=== PATIENT | female | born 1970 | race Asian ===

== ENCOUNTER → 2023-10-05 06:37 | Day surgery (SDC) | payer BC, SELFPAY | LOC: GI 06:37 | PROVIDERS: ATTENDING PHYSICIAN Internal Medicine Gastroenterology | DX: Z12.11 Encounter for screening for malignant neoplasm of colon (principal); Z80.0 Family history of malignant neoplasm of digestive organs; K57.30 Diverticulosis of large intestine without perforation or abscess without bleeding; K64.8 Other hemorrhoids; D12.2 Benign neoplasm of ascending colon; K21.9 Gastro-esophageal reflux disease without esophagitis; K31.9 Disease of stomach and duodenum, unspecified; K29.70 Gastritis, unspecified, without bleeding | CPT/HCPCS: 45380; 43239; 88305; 88342 ==

== ENCOUNTER → 2024-08-17 07:14 | Outpatient (REF) | payer BC, SELFPAY | LOC: HWRAD 07:14 | PROVIDERS: ATTENDING PHYSICIAN Nurse Practitioner Adult Health | DX: R79.89 Other specified abnormal findings of blood chemistry (principal) | CPT/HCPCS: 76700 ==

== ENCOUNTER 2024-10-25 21:45 | Inpatient (IN) | payer BC, SELFPAY ==
[2024-10-25 16:18] VITALS: BP 165/108
[2024-10-25] MEDS: ZOFRAN ODT (ORALLY DISINTEGRATING) 4 MG PO (16:28)
[2024-10-25] MEDS: TYLENOL 1000 MG PO (16:28)
[2024-10-25 17:05] LABS: COVID-19 Antigen Negative (Negative)
[2024-10-25 17:22] LABS: Hematocrit 38.5 % (37.0-47.0); Hemoglobin 13.3 g/dL (12.0-16.0); Mean Corp Hgb Conc. 34.5 g/dL (33.0-37.0); Mean Corpuscular Volume 90.8 fL (81.0-99.0); Nucleated Red Blood Cells % 0 %; Platelet Count 349 10^3/uL (130-400); Red Cell Dist. Width 12.4 % (11.5-14.5)
[2024-10-25 17:23] LABS: HCG, Serum Qualitative Screen Negative
[2024-10-25 17:24] LABS: ALT (SGPT) 41 U/L (0-35); AST (SGOT) 33 U/L (14-36); Albumin 4.2 g/dl (3.5-5.0); Alkaline Phosphatase 85 U/L (38-126); Blood Urea Nitrogen 19 mg/dl (7-17); Calcium 8.9 mg/dl (8.4-10.2); Carbon Dioxide 24 mmol/L (22-30); Chloride 102 mmol/L (98-107); Glucose 126 mg/dl (70-99); Potassium 3.5 mmol/L (3.5-5.1); Sodium 137 mmol/L (135-145); Total Protein 7.7 g/dl (6.3-8.2); eGFR > 60.00
[2024-10-25 18:45] VITALS: BP 122/68
[2024-10-25 18:46] VITALS: BMI 30.7
--- NOTE | 2024-10-25 19:26 | ED.GENMED ---
History of Present Illness
General
Chief Complaint: Fever
Source: patient
Exam Limitations: none
Time Seen by Provider: 10/25/24 18:54
History of Present Illness
History of Present Illness:
54-year-old female started 4 to 5 days ago with cough congestion. Initially started on a inhaler. Today added azithromycin. Some vomiting but only during coughing. Had some shortness of breath today during coughing.
Past History
Past History
ED Past Medical History: HTN
ED Past Surgical History: and Gynecological (Lumpectomy)
Review of Systems
Review of Systems
All Other Systems: Not applicable
Constitutional: Reports fever and chills
Respiratory: Reports cough; Denies hemoptysis
Cardiac: Denies chest pain
Phy Exam
Physical Exam
Physical Exam:
GENERAL: Alert and oriented in no apparent distress
EYE: Orbits normal.
NECK: Supple, no significant adenopathy.
ENT: Nasal congestion
CARDIAC: Regular rate and rhythm without any obvious murmurs.
LUNGS: No respiratory distress. Occasional cough. Sounds very congested nasally. Mild expiratory wheezing and some decreased effort mainly secondary to cough with deep breathing.
ABDOMEN: Soft, without focal tenderness or distention
NEUROLOGICAL: Alert and oriented , grossly non-focal
SKIN: Warm and dry, no rash or lesion, no discoloration, skin intact.
MUSCULOSKELETAL: No edema,no deformity.Good color. No cord. No calf swelling
PSYCH: Normal and appropriate interaction.
Sepsis
Sepsis Screening
Sepsis Assessment: Sepsis Ruled Out
Sepsis Screen
Sepsis Screen: Sepsis Ruled Out
Date: 10/26/24
Time: 02:03
Course
Orders/Labs/Results
Orders:
Orders
10/25/24 Dinner
Regular
10/25/24 16:24
Electrocardiogram (*1) Urgent
Reason for Study: Shortness of Breath
EKG- Treatment ONCE
Test Result ONCE
CR Chest - 2 Views Urgent
Comment:
Reason For Exam: cough
10/25/24 16:26
Acetaminophen [Tylenol] 1,000 mg .ROUTE .STK-MED ONE
Ondansetron Orally Disint [Zofran Odt (Orally Disintegrating)] 4 mg .ROUTE .STK-MED ONE
10/25/24 16:27
Acetaminophen [Tylenol] 1,000 mg PO NOW STA
Ondansetron Orally Disint [Zofran Odt (Orally Disintegrating)] 4 mg PO NOW STA
10/25/24 16:34
COVID-19 Antigen Urgent
Source: Nasal Swab
Complete Blood Count/With Diff Urgent
Comprehensive Metabolic Panel Urgent
HCG, Serum Qualitative Screen Urgent
Lactic Acid Urgent
Influenza A+B Rapid Molecular Urgent
ISELA Source: Nasal Swab
Specimen Description:
10/25/24 19:25
IV Insert/Care/Rem.- Treatment PRN
0.9% Sodium Chloride 1000 ml [Nss] 1,000 ml IV BOLUS
CefTRIAXone [Rocephin] 1,000 mg IV NOW STA
Dexamethasone Sod Phosphate [Decadron] 8 mg IV NOW STA
Ipratropium/Albuterol Sulfate [Duoneb] 3 ml .ROUTE .STK-MED ONE
Ipratropium/Albuterol Sulfate [Duoneb] 3 ml INH R NOW STA
10/25/24 21:29
Admit/Transfer Patient As Directed
Co-Sign Provider:
Level of Care: Inpatient admission
Assign to:: Medical/Surgical
Physician / Group: priscilla
Diagnosis: sepsis pneumonia
Reason for Hospitalization: sepsis pneumonia
Expected length of stay greater than two midnights?: Yes
ELOS- Estimated Length of Stay in days: 2
I certify the patient meets the requirements for IP care: Yes
PRN Pain Medication Management As Directed
May give lesser potent ordered pain med per pt: Yes
preference::
Protocol:: Medication orders for pain may be administered in a
manner that supports deferring to patient preference
when the pt is:
- Requesting an ordered lesser potent pain medication.
Least to most potent pain medications are defined
as: acetaminophen < NSAID < tramadol < opioids
(morphine, oxycodone, hydromorphone).
- Requesting a lesser dose of the same medication IF
ORDERED.
- Requesting a less intrusive route of administration
if both routes are prescribed by the provider (PO <
IV).
10/25/24 21:30
Code Status As Directed
Resuscitation Status: Full Code
10/25/24 21:44
Respiratory Culture/Gram Stain Urgent
ISELA Source: Sputum
Specimen Description:
10/25/24 23:04
0.9% Sodium Chloride 1000 ml [Nss] 1,000 ml IV 100 mls/hr
Acetaminophen [Tylenol] 650 mg PO Q4HPRN PRN
Ondansetron Injectable [Zofran] 4 mg IV Q6HPRN PRN
10/25/24 23:04
Activity As Directed
Activity Level: As Tolerated
Vital Signs As Directed
Frequency: Per unit guidelines
DX Deep Vein Thrombosis Video Routine
10/26/24 00:00
Azithromycin [Zithromax] 250 mg 0.9% Sodium Chloride 250 ml [Nss] 250 ml IV Q24H
10/26/24 06:00
Complete Blood Count/With Diff IN AM
Comprehensive Metabolic Panel IN AM
10/26/24 08:00
Heparin 5,000 units SC Q12
10/26/24 20:00
CefTRIAXone [Rocephin] 1,000 mg IV Q24H
Abnormal Lab Results
10/25/24
16:34
MCH 31.4 H pg
(27.0-31.0)
Absolute Neuts (auto) 6.7 H 10^3/uL
(1.4-6.5)
Neutrophils % 77.8 H %
(42.2-75.2)
Lymphocytes % 16.4 L %
(20.5-51.1)
BUN 19 H mg/dl
(7-17)
Glucose 126 H mg/dl
(70-99)
ALT 41 H U/L
(0-35)
10/25/24 16:34
10/25/24 16:34
Vital Signs
Initial and Last Documented VS:
Initial Vital Signs
Temp Pulse Resp BP Pulse Ox
101.3 F H 129 25 165/108 93
10/25/24 16:18 10/25/24 16:18 10/25/24 16:18 10/25/24 16:18 10/25/24 16:18
Last Documented Vital Signs
Temp Pulse Resp BP Pulse Ox
97.7 F 83 16 143/86 95
10/25/24 23:09 10/25/24 23:09 10/25/24 23:09 10/25/24 23:09 10/25/24 23:09
MDM/Problems Addressed
Differential Diagnosis Includes:
This is clearly a pulmonary issue. Nasally very congested. Cough. Expiratory wheezing. I do not feel pulmonary emboli is high on the list. Symptoms are very infectious in etiology. Questionable small retrocardiac infiltrate. Will add
Rocephin, fluids, DuoNeb and some steroids for the wheezing.
*Radiology
Radiology exam reviewed: preliminary read by ED provider (Questionable small retrocardiac infiltrate)
*Pulse Oximetry
SaO2: 94
Oxygen Mode of Delivery: Room air
Patient hypoxic: no
*Critical Care Note
Total Time (30-74mins, 75-104mins- exclusive of procedures): Not Applicable
Update Note
Update Note:
Patient rechecked. Looks relatively comfortable. Actually more wheezing expiratory rhonchi now. Pulse ox is running 90-91 on room air. Placed on supplemental oxygen. Feel best to admit.
ED Attending Note
-
Portions of this chart may have been created with voice recognition software.� Occasional wrong word or��sound alike� substitutions may have occurred due to the inherent limitations of voice recognition software.
Discharge Plan
Departure
Patient Disposition: Admit
Date of Disposition: 10/25/24
Time of Disposition: 21:21
Presentation/result/management discussed w/ accepting MD/DO: Hospitalist
Discharge Problem:
Bronchitis/retrocardiac pneumonia
Interventions
Interventions:
*Risk Screen - Suicide Last Done: 10/25/24 23:36
*General Assessment Last Done: 10/25/24 18:47
*Neglect/Abuse Screening Last Done: 10/25/24 18:47
*ED- Fall Risk Assessment Last Done: 10/25/24 18:47
*ED COVID-19 Vaccine History Last Done: 10/25/24 23:36
*Nursing Disposition Last Done: 10/25/24 22:59
ED- Neurological Assessment Last Done: 10/25/24 18:47
ED-Skin Assessment Last Done: 10/25/24 18:47
Discharge Date and Time
Discharge Date/Time: 10/25/24 23:00
[2024-10-25] MEDS: DUONEB 3 ML INH (19:39)
[2024-10-25] MEDS: NSS 1000 IV ×2 (19:47→23:22)
[2024-10-25] MEDS: DECADRON 8 MG IV (19:49)
[2024-10-25] MEDS: ROCEPHIN 1000 MG IV (19:51)
[2024-10-25 20:00] VITALS: BP 130/77
[2024-10-25 21:00] VITALS: BP 123/74
--- NOTE | 2024-10-25 21:47 | HPS.HSE ---
Family Physician
-
Family Physician: Desi Owens
Chief Complaint
-
cough
History of Present Illness
54-year-old female past medical history of hypertension presenting with 5 days of productive cough and congestion. Also with fever and vomiting with cough. Some shortness of breath. He was started on inhaler and azithromycin today. Denies chest
pain. She initially had a sore throat but this is improved. She has headaches. She did have a little bit of loose stool today. She has decreased taste.
Her children had cough few weeks ago but this had improved.
No prior lung conditions such as asthma.
Medical History
Past Medical History
Past Medical History: Reports Other ( hypertension )
Past Surgical History: Reports None
Social History
Tobacco: Non-smoker
Alcohol: None
Drug: None
Family History
Family History: Not pertinent
Allergies / Home Medications
Allergies reflects when Allergies were last updated in [facility].
Home Medications with original date entered in [facility]
Allergy/Medication List:
Allergies
Allergy/AdvReac Type Severity Reaction Status Date / Time
No Known Allergies Allergy Verified 10/25/24 16:23
Review of Systems
-
History Source: Patient
A 12 point ROS was completed and negative except as noted: Yes
Constitutional: Reports No Symptoms
EENT: Reports No Symptoms
Respiratory: Reports See HPI
Cardiac: Reports No Symptoms
Abdomen/GI: Reports No Symptoms
: Reports No Symptoms
Musculoskeletal: Reports No Symptoms
Skin: Reports No Symptoms
Neurological: Reports No Symptoms
Endocrine: Reports No Symptoms
Hematologic/Lymphatic: Reports No Symptoms
Psych: Reports No Symptoms
Physical Exam
Vital Signs
Vital Signs
Temp Pulse Resp BP Pulse Ox
99.3 F 129 25 123/74 92
10/25/24 18:53 07/29/25 16:18 10/25/24 16:18 10/25/24 21:00 10/25/24 21:16
Physical Exam
General: Well Developed, Well Nourished and No Apparent Distress
HEENT: NormoCephalic, Moist mucous membranes and Atraumatic
Respiratory: Wheezes
Cardiac: S1/S2 and Regular Rhythm; No Murmur or Rub
GI: Soft, Non Tender, Non Distended and Normal Bowel Sounds; No Organomegaly
Rectal: Deferred by Provider
Musculoskeletal: No Clubbing, No Cyanosis and No Edema
Skin: No Rash
Neuro: Nonfocal/grossly intact
Laboratory Results
-
10/25/24 16:34
10/25/24 16:34
Laboratory Results
Lactic Acid 0.9 mmol/L (0.7-2.0) 10/25/24 16:34
Total Bilirubin 1.1 mg/dl (0.2-1.3) 10/25/24 16:34
AST 33 U/L (14-36) 10/25/24 16:34
ALT 41 U/L (0-35) H 10/25/24 16:34
Alkaline Phosphatase 85 U/L (38-126) 10/25/24 16:34
Data Reviewed
-
Lab Data: Labs Reviewed by me
Old Records: Reviewed
Impression/Plan
-
IMPRESSION:
PLAN:
# Sepsis (fever, tachycardia) secondary to pneumonia/acute bronchitis
- Chest x-ray without any clear pneumonia visible, report pending
- Blood cultures
- Sputum culture
- COVID and influenza negative
- Ceftriaxone/Zithromax
-DuoNebs every 6 as needed
- Tylenol, Zofran as needed
Essential hypertension
Full code
DVT prophylaxis-heparin
Regular diet
[2024-10-25 23:09] VITALS: BP 143/86; BMI 30.9
[2024-10-25] MEDS: ZITHROMAX 252.5 MG IV (23:26)
--- NOTE | 2024-10-25 23:30 | PTCARENOTE ---
Patient arrived from ED to [facility] [address]. Patient ambulated from stretcher to bed. Patient AAOx3. Patient oriented to room, bed in lowest position, call rodriguez within reach. Will continue to monitor.
[2024-10-26 07:30] VITALS: BP 128/84
[2024-10-26 07:35] LABS: ALT (SGPT) 40 U/L (0-35); AST (SGOT) 32 U/L (14-36); Albumin 3.7 g/dl (3.5-5.0); Alkaline Phosphatase 84 U/L (38-126); Blood Urea Nitrogen 14 mg/dl (7-17); Calcium 7.8 mg/dl (8.4-10.2); Carbon Dioxide 25 mmol/L (22-30); Chloride 108 mmol/L (98-107); Estimated Creatinine Clearance 111 ml/min; Glucose 150 mg/dl (70-99); Potassium 4.2 mmol/L (3.5-5.1); Sodium 140 mmol/L (135-145); Total Protein 6.8 g/dl (6.3-8.2); eGFR > 60.00
[2024-10-26] MEDS: HEPARIN 5000 UNITS SC ×2 (07:38→22:39)
[2024-10-26 07:55] LABS: Hematocrit 36.7 % (37.0-47.0); Hemoglobin 12.2 g/dL (12.0-16.0); Mean Corp Hgb Conc. 33.2 g/dL (33.0-37.0); Mean Corpuscular Volume 92.0 fL (81.0-99.0); Platelet Count 336 10^3/uL (130-400); Red Cell Dist. Width 12.3 % (11.5-14.5)
[2024-10-26 08:58] LABS: Nucleated Red Blood Cells % 0 %
--- NOTE | 2024-10-26 11:25 | W.PN.HOSP.TC ---
Addendum entered and electronically signed by Mitchel Miles MD 10/26/24 11:36:
Hold off on checking procalcitonin for now
Original Note:
Today's Communication/Plan
-
Follow-up on the blood cultures
Continue with antibiotics for now
Check A1c and procalcitonin in the morning
Assessment / Plan
Assessment / Plan
# Sepsis (fever, tachycardia) secondary to pneumonia
- Chest x-ray with Mild posterior right lower lobe pneumonia.
- Blood cultures not checked on admit. Already received abx. If repeat episode of persistent purulent Cultures
- Sputum culture
- COVID and influenza negative
- Ceftriaxone/Zithromax
- DuoNebs standing for now
- Tylenol, Zofran as needed
Essential hypertension
- Hold HCTZ for now
History of tobacco abuse
- DuoNebs for now
Hyperglycemia
- Glucose elevated on BMP check A1c in the morning
Mild ALT elevation possibly in the setting of sepsis
Improving
Full code
DVT prophylaxis-heparin
Regular diet
Anticipated Discharge: > 48 hours
Subjective/Interval History
-
Date of Service: October 26, 2024
remains with productive severe cough
off oxygen this morning
Objective Data
-
Labs:
Laboratory Results
10/26/24
06:55
WBC 8.3
Hgb 12.2
Hct 36.7 L
Plt Count 336
Sodium 140
Potassium 4.2
Chloride 108 H
Carbon Dioxide 25
BUN 14
Creatinine 0.5 L
Glucose 150 H
Calcium 7.8 L
Total Bilirubin 0.7
AST 32
ALT 40 H
Alkaline Phosphatase 84
Vital Signs:
Vital Signs
Temp Pulse Resp BP Pulse Ox
97.9 F 71 18 128/84 94
10/26/24 07:30 10/26/24 07:30 10/26/24 07:30 10/26/24 07:30 10/26/24 09:21
I&O
10/25/24 10/26/24 10/27/24
06:59 06:59 06:59
Intake Total 480 / 480
Balance 480 / 480
Physical Exam
-
General: Well Developed and No Apparent Distress
HEENT: Normocephalic, Atraumatic and Moist Mucous Membranes
Respiratory: Rhonchi
Cardiac: Regular Rhythm and S1/S2; Negative Murmur, Rub or Gallop
GI: Soft, Nontender, Nondistended and Normal Bowel Sounds; Negative Organomegaly
Rectal: Deferred by Provider
Musculoskeletal: No Clubbing, No Cyanosis and No Edema
Skin: Negative Rash
Neuro: Awake, Alert, Oriented, AO x 3, No Motor Deficits and Nonfocal/Grossly Intact; Negative Slurred Speech or Facial Droop
Psych: Calm
[2024-10-26] MEDS: NSS IV (11:51)
--- NOTE | 2024-10-26 12:36 | CM ---
Patient seen at bedside with and children
IA completed
Lives in a 2 story home with /children, 0 [address], flight stairs to bedroom/bathroom
PLOF: Independent
DME: [facility]
Denies VN/Rehab
Denies insecurities
PCP: Desi Owens
Pharmacy: [facility]
PLAN: Home, no needs
[2024-10-26] MEDS: DUONEB 3 ML INH ×2 (13:04→19:30)
[2024-10-26] MEDS: TYLENOL 650 MG PO (14:34)
[2024-10-26 15:30] VITALS: BP 122/80
[2024-10-26] MEDS: ROCEPHIN 1000 MG IV (22:41)
[2024-10-26] MEDS: STERILE WATER FOR INJECTION 10 ML IV (22:42)
[2024-10-26 23:12] VITALS: BP 138/85
[2024-10-26] MEDS: ZITHROMAX 252.5 MG IV (23:17)
[2024-10-26] MEDS: ORETIC 12.5 MG PO (23:17)
[2024-10-27 06:00] VITALS: BMI 31.6
[2024-10-27] MEDS: DUONEB 3 ML INH (06:06)
[2024-10-27 07:38] VITALS: BP 127/93
[2024-10-27] MEDS: HEPARIN 5000 UNITS SC (07:53)
[2024-10-27 08:20] LABS: Hematocrit 32.5 % (37.0-47.0); Hemoglobin 11.1 g/dL (12.0-16.0); Mean Corp Hgb Conc. 34.2 g/dL (33.0-37.0); Mean Corpuscular Volume 91.5 fL (81.0-99.0); Platelet Count 387 10^3/uL (130-400); Red Cell Dist. Width 12.3 % (11.5-14.5)
[2024-10-27 09:24] LABS: Nucleated Red Blood Cells % 0 %
[2024-10-27 09:44] LABS: Glycohemoglobin (HgbA1c) 6.1 % (4.0-5.6)
[2024-10-27 10:35] LABS: Blood Urea Nitrogen 19 mg/dl (7-17); Calcium 8.4 mg/dl (8.4-10.2); Carbon Dioxide 23 mmol/L (22-30); Chloride 109 mmol/L (98-107); Estimated Creatinine Clearance 112 ml/min; Glucose 193 mg/dl (70-99); Potassium 3.3 mmol/L (3.5-5.1); Sodium 140 mmol/L (135-145); eGFR > 60.00
--- NOTE | 2024-10-27 10:37 | W.PN.HOSP.TC ---
Today's Communication/Plan
-
dc home
replete kcl
po abx on dc
Assessment / Plan
Assessment / Plan
# Sepsis (fever, tachycardia) secondary to pneumonia
- Chest x-ray with Mild posterior right lower lobe pneumonia.
- Blood cultures not checked on admit. Already received abx. If repeat episode of persistent purulent Cultures
- Sputum culture with oropharyngeal kurt contamination.
- COVID and influenza negative
- Ceftriaxone/Zithromax and transition to p.o. antibiotics on discharge.
- DuoNebs standing for now significant improvement. Continue with as needed as outpatient.
- Tylenol, Zofran as needed
Essential hypertension
- Restart hydrochlorothiazide
History of tobacco abuse
- DuoNebs for now
Hyperglycemia
- Glucose elevated on BMP check A1c in the morning
Mild ALT elevation possibly in the setting of sepsis
Improving
Hypokalemia
Replete and monitor
Prediabetes
Recommend diet and exercise and outpatient follow-up
Full code
DVT prophylaxis-heparin
Regular diet
More than 30 minutes spent in discharge including
Final examination of the patient
Summarizing hospital stay
Instructions for continuing care to all relevant caregivers
Preparation of discharge records, prescriptions, and referral forms
Total time spent (in minutes): 55
Anticipated Discharge: Today
Subjective/Interval History
-
Date of Service: October 27, 2024
States feeling significantly better
Remains afebrile
States cough has significantly improved
Objective Data
-
Labs:
Laboratory Results
10/27/24 10/27/24
07:04 08:49
WBC 9.6
Hgb 11.1 L
Hct 32.5 L
Plt Count 387
Sodium Cancelled 140
Potassium Cancelled 3.3 L
Chloride Cancelled 109 H
Carbon Dioxide Cancelled 23
BUN Cancelled 19 H
Creatinine Cancelled 0.6
Glucose Cancelled 193 H
Calcium Cancelled 8.4
Vital Signs:
Vital Signs
Temp Pulse Resp BP Pulse Ox
97.9 F 86 16 127/93 92
10/27/24 07:38 10/27/24 07:38 10/27/24 07:38 10/27/24 07:38 10/27/24 07:38
I&O
10/26/24 10/27/24 10/28/24
06:59 06:59 06:59
Intake Total 480 / 480 1200 / 1200
Balance 480 / 480 1200 / 1200
Physical Exam
-
General: Well Developed and No Apparent Distress
HEENT: Normocephalic, Atraumatic and Moist Mucous Membranes
Respiratory: Clear to Auscultation
Cardiac: Regular Rhythm and S1/S2; Negative Murmur, Rub or Gallop
GI: Soft, Nontender, Nondistended and Normal Bowel Sounds; Negative Organomegaly
Rectal: Deferred by Provider
Musculoskeletal: No Clubbing, No Cyanosis and No Edema
Skin: Negative Rash
Neuro: Awake, Alert, Oriented, AO x 3, No Motor Deficits and Nonfocal/Grossly Intact; Negative Slurred Speech or Facial Droop
Psych: Calm
--- NOTE | 2024-10-27 11:00 | CM ---
Patient seen at bedside
Discharge to home today
IMM n/a
PLAN: Home, no needs
daughter to transport
[2024-10-27] MEDS: KCL 40 MEQ PO (11:07)
[2024-10-27] MEDS: DUONEB INH (11:12)
[2024-10-27 11:14] VITALS: BP 141/98
--- NOTE | 2024-10-27 13:25 | W.DCSUMMARY ---
Discharge Summary
Discharge Data
Date of Admission: 10/25/24
Date of Discharge: 10/27/24
-
Pending Results: No
Hospital Course
54-year-old female past medical history of hypertension, tobacco abuse who is presenting from home with fevers and chills. Patient was found to have sepsis. Chest x-ray was performed which showed posterior right lower lobe pneumonia. COVID
influenza were checked to be negative. Blood cultures were not checked. Patient was started on ceftriaxone and Zithromax. Patient was also started on bronchodilators. Patient with improvement in breathing. Patient remained afebrile. White
count was normal. Sputum sample was sent to lab however contamination with oropharyngeal kurt. Patient with significant improvement in symptoms. Patient be discharged on p.o. antibiotics. Patient also had mild ALT elevation admission which was
deemed secondary to sepsis which improved. Also with prediabetes and recommend to follow with primary care doctor.
Discharge Plan
-
Patient Disposition: Home (Routine Discharge)
Discharge Diagnosis/Procedures: Sepsis likely secondary to pneumonia suspected bacterial versus viral
Hypokalemia
Mild ALT elevation possibly in the setting of sepsis
Prediabetes
Condition: Fair
Diet: As tolerated
Activity: No restrictions
Driving Restrictions: As prior to admission
Blood Work: Repeat CMP in 1 to 2 weeks to assess downtrending of transaminitis via primary doctor
Activity Restrictions/Additional Instructions:
Your hemoglobin A1c was 6.1. Recommend diet and exercise
Referrals:
Desi Owens CRNP [Family Provider, General] - in less than 1 week
Referral Note: Follow-up for prediabetes
Prescriptions:
New
cefdinir 300 mg capsule
300 mg PO BID Qty: 6 0RF
Continued
azithromycin 250 mg tablet
250 mg PO DAILY
Rx Instructions:
10/26/24: Two tablets [500mg] once on 10/25/24; then 250mg daily x 4 doses
albuterol sulfate 90 mcg/actuation HFA aerosol inhaler
1 inh INHALATION Q4HPRN PRN (Reason: shortness of breath)
Excedrin Extra Strength 250-250-65 mg Tablet
1 tab PO DAILYPRN PRN (Reason: migraine)
hydrochlorothiazide 12.5 mg tablet
12.5 mg PO DAILY
Discharge Orders:
Discharge Patient (As Directed); Ordered 10/27/24
Ordered By: Mitchel Miles
Discharge Date and Time
Discharge Date/Time: 10/27/24 11:48
Print Language: CITIZEN OF [place]
== END 2024-10-27 11:48 | disposition home or self-care (01) | DRG 871 ==
LOC: 3 WEST ACU 21:45
PROVIDERS: Emergency Medicine; ADMITTING PHYSICIAN Hospitalist; ATTENDING PHYSICIAN Hospitalist; EMERGENCY PHYSICIAN Emergency Medicine; FAMILY PHYSICIAN Nurse Practitioner Adult Health
DX: A41.9 Sepsis, unspecified organism (principal); J18.9 Pneumonia, unspecified organism; E87.6 Hypokalemia; I10 Essential (primary) hypertension; Z87.891 Personal history of nicotine dependence; Z11.52 Encounter for screening for COVID-19; G43.909 Migraine, unspecified, not intractable, without status migrainosus; R73.03 Prediabetes
CPT/HCPCS: 71046; 80048; 80053; 83036; 83605; 84703; 85025; 87070; 87205; 87502; 87811; 93005; 94640; 96361; 96374; 96375; 99285